=== PATIENT | male | born 1995 | race Caucasian/White ===

== ENCOUNTER 2024-03-17 21:19 | Emergency (ER) | payer SELFPAY ==
[2024-03-17 21:21] VITALS: BP 135/94
[2024-03-17 21:45] LABS: % Basophils 0.6 % (0-2); % Eosinophils 1.6 % (0-6); % Immature Granulocytes 0.3 % (0-0.5); % Lymphocytes 17.4 % (20.5-51.1); % Monocytes 7.1 % (1.7-9.3); Absolute Basophils 0.1 10^3/uL (0-0.2); Absolute Eosinophils 0.2 10^3/uL (0-0.7); Absolute Monocytes 0.8 10^3/uL (0.1-0.6); Absolute Neutrophils 8.2 10^3/uL (1.4-6.5); Hematocrit 43.4 % (39.0-52.0); Hemoglobin 15.1 g/dL (13.0-18.0); Mean Corp Hgb Conc. 34.8 g/dL (33.0-37.0); Mean Corpuscular Hgb 30.2 pg (27.0-31.0); Mean Corpuscular Volume 86.8 fL (80.0-94.0); Mean Platelet Volume 9.3 fL (7.4-10.4); Nucleated Red Blood Cells % 0 % (-); Platelet Count 303 10^3/uL (130-400); Red Cell Dist. Width 12.1 % (11.5-14.5); White Blood Cell Count 11.2 10^3/uL (4.8-10.8)
[2024-03-17 22:10] LABS: Troponin I < 0.012 ng/ml
[2024-03-17 22:26] LABS: ALT (SGPT) 32 U/L (0-50); AST (SGOT) 34 U/L (17-59); Albumin 4.8 g/dl (3.5-5.0); Alkaline Phosphatase 109 U/L (38-126); Blood Urea Nitrogen 28 mg/dl (9-20); Calcium 10.8 mg/dl (8.4-10.2); Carbon Dioxide 26 mmol/L (22-30); Chloride 98 mmol/L (98-107); Glucose 154 mg/dl (70-99); Potassium 4.3 mmol/L (3.5-5.1); Sodium 135 mmol/L (135-145); Total Bilirubin 0.9 mg/dl (0.2-1.3); Total Protein 7.8 g/dl (6.3-8.2); eGFR > 60.00
[2024-03-17 23:18] VITALS: BP 130/82
[2024-03-18] VITALS: BP 125/82
--- NOTE | 2024-03-18 00:11 | ED.GENMED ---
History of Present Illness
General
Chief Complaint: Fall
Time Seen by Provider: 03/17/24 23:23
History of Present Illness
History of Present Illness:
Patient is a 28-year-old male with history of concussions presenting to the emergency department after a fall. 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 He states that he was turning around he thought
he was going upstairs but went down the steps instead. He was wearing a helmet and all his gear that is padded. He did not hit his head or lose consciousness. After he got up other firefighters were saying that he was 'dazed' however patient
denies any confusion or disorientation. He is not have any amnesia to the event. He states that he only had a doughnut today which could explain some of the symptoms. They checked his blood sugar and it was normal. He denies any numbness
tingling or weakness. No traumatic injuries. He does state that he feels a little sore in his lower back. No nausea vomiting. No headache.
Past History
Past History
ED Past Medical History: Psychiatric (ADHD, ASPERGERS, CONCUSSIONS)
ED Past Surgical History: None
Social History
Tobacco: Non-smoker
Alcohol: None
Drug: None
Personal: Single
Living: with family
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
Phy Exam
Physical Exam
Physical Exam:
GENERAL: no acute distress
HEENT: atraumatic, extraocular muscles intact, no signs of entrapment, dentition intact, no other obvious trauma
NECK: no midline tenderness, normal range of motion
BACK: no midline tenderness, no other obvious trauma, mild left lower lumbar paraspinal tenderness
CHEST: no tenderness, no flail segment, no subcutaneous emphysema, no other obvious trauma
LUNGS: clear to auscultation bilaterally
CARDIOVASCULAR: regular rate and rhythm
ABDOMEN: soft, non-tender, no masses, no other obvious trauma
PELVIS: stable, no obvious injury
EXTREMITIES: moving all extremities, distal pulses intact, no other obvious trauma
NEUROLOGIC: awake, alert x 3, no focal deficits
Course
Orders/Labs/Results
Orders:
Orders
03/17/24 21:24
Electrocardiogram (*1) Urgent
Reason for Study: Chest Pain
EKG- Treatment ONCE
03/17/24 21:34
Complete Blood Count/With Diff Urgent
Comprehensive Metabolic Panel Urgent
Troponin I Urgent
03/18/24 00:11
Lumbar Spine, 2 or 3 View [CR Lumbar Spine 2 Or 3 Views] Urgent
Comment:
Reason For Exam: tenderness
Abnormal Lab Results
03/17/24
21:34
WBC 11.2 H 10^3/uL
(4.8-10.8)
Absolute Neuts (auto) 8.2 H 10^3/uL
(1.4-6.5)
Absolute Monos (auto) 0.8 H 10^3/uL
(0.1-0.6)
Lymphocytes % 17.4 L %
(20.5-51.1)
BUN 28 H mg/dl
(9-20)
Glucose 154 H mg/dl
(70-99)
Calcium 10.8 H mg/dl
(8.4-10.2)
03/17/24 21:34
03/17/24 21:34
Vital Signs
Initial and Last Documented VS:
Initial Vital Signs
Temp Pulse Resp BP Pulse Ox
97.7 F 98 20 135/94 98
03/17/24 21:21 03/17/24 21:21 03/17/24 21:21 03/17/24 21:21 03/17/24 21:21
Last Documented Vital Signs
Temp Pulse Resp BP Pulse Ox
97.7 F 18 13 125/82 99
03/17/24 21:21 03/18/24 00:41 03/18/24 00:30 03/18/24 00:00 03/18/24 00:30
MDM/Problems Addressed
Differential Diagnosis Includes:
Patient is a 28-year-old man with history of concussion presenting to the emergency department after a fall. Vitals unremarkable exam does show tenderness over the left lower lumbar paraspinal region. Likely musculoskeletal pain after the injury.
could be transverse process fracture though less likely. It is reassuring that he has no neurodeficits. Nexus CT head rule negative. After shared decision making we will hold off on the CT scan. Will obtain x-ray of the spine for further
evaluation. I did offer pain control however patient denied at this time. We did discuss at length about concussion given that this is his third concussion.
*Critical Care Note
Total Time (30-74mins, 75-104mins- exclusive of procedures): Not Applicable
Update Note
Update Note:
On reevaluation patient resting comfortably. He has no new, plans. X-ray per my interpretation with no obvious compression fracture or spinous process fracture. I did update patient that the official x-ray will be read tomorrow. Will give them a
call if there is an acute finding. Patient and patient's father at bedside understand. Given that patient has no neurodeficits anticipate conservative management with Tylenol Motrin even if there was a fracture. Will discharge at this time. All
questions answered. Strict return precautions given to include no numbness tingling, new weakness intractable nausea vomiting or headache.
ED Attending Note
-
Portions of this chart may have been created with voice recognition software.� Occasional wrong word or��sound alike� substitutions may have occurred due to the inherent limitations of voice recognition software.
Discharge Plan
Departure
Patient Disposition: Home (Routine Discharge)
Date of Disposition: 03/18/24
Time of Disposition: 01:11
Patient with high blood pressure during this ER visit?: No
Discharge Problem:
Fall, Concussion
Instructions: Concussion, Adult (DC)
Prescriptions:
No Action
No Current Medications
0
Referrals:
Dontrell Marquez CRNP [Family Provider] -
Interventions
Interventions:
*Risk Screen - Suicide Last Done: 03/17/24 21:21
*Neglect/Abuse Screening Last Done: 03/17/24 21:21
ED-Musculoskeletal Assessment Last Done: 03/18/24 00:19
ED- Neurological Assessment Last Done: 03/18/24 00:19
ED-Skin Assessment Last Done: 03/18/24 00:19
Discharge Date and Time
Print Language: JORDANIAN
[2024-03-18 01:19] VITALS: BP 132/82
== END 2024-03-18 01:20 | disposition home or self-care (01) ==
LOC: EMR 21:19
PROVIDERS: Emergency Medicine; EMERGENCY PHYSICIAN Student in an Organized Health Care Education/Training Program; FAMILY PHYSICIAN Nurse Practitioner Family
DX: S06.0XAA Concussion with loss of consciousness status unknown, initial encounter (principal); W19.XXXA Unspecified fall, initial encounter; F84.5 Asperger's syndrome
CPT/HCPCS: 99283; 72100; 80053; 84484; 85025; 93005

== ENCOUNTER → 2024-04-19 09:07 | Outpatient (REF) | payer OTHER, SELFPAY | LOC: HWRAD 09:07 | PROVIDERS: ATTENDING PHYSICIAN Nurse Practitioner Family | DX: M54.6 Pain in thoracic spine (principal) | CPT/HCPCS: 72072 ==

== ENCOUNTER → 2024-04-21 08:17 | Outpatient (REF) | payer OTHER, SELFPAY | LOC: RAD 08:17 | PROVIDERS: ATTENDING PHYSICIAN Nurse Practitioner Family | DX: M54.6 Pain in thoracic spine (principal); R22.2 Localized swelling, mass and lump, trunk | CPT/HCPCS: 76604 ==

== ENCOUNTER 2024-06-28 20:08 | Emergency (ER) | payer SELFPAY ==
[2024-06-28 20:16] VITALS: BP 123/84
[2024-06-28 20:34] LABS: % Basophils 0.7 % (0-2); % Eosinophils 2.6 % (0-6); % Immature Granulocytes 0.4 % (0-0.5); % Monocytes 9.6 % (1.7-9.3); % Neutrophils 54.7 % (42.2-75.2); Absolute Basophils 0.1 10^3/uL (0-0.2); Absolute Eosinophils 0.2 10^3/uL (0-0.7); Absolute Lymphocytes 2.2 10^3/uL (1.2-3.4); Absolute Monocytes 0.7 10^3/uL (0.1-0.6); Absolute Neutrophils 3.8 10^3/uL (1.4-6.5); Hematocrit 40.1 % (39.0-52.0); Hemoglobin 14.1 g/dL (13.0-18.0); Mean Corp Hgb Conc. 35.2 g/dL (33.0-37.0); Mean Corpuscular Hgb 30.3 pg (27.0-31.0); Mean Corpuscular Volume 86.1 fL (80.0-94.0); Mean Platelet Volume 9.3 fL (7.4-10.4); Nucleated Red Blood Cells % 0 % (-); Platelet Count 268 10^3/uL (130-400); Red Blood Cell Count 4.66 10^6/uL (4.70-6.10); Red Cell Dist. Width 12.3 % (11.5-14.5); White Blood Cell Count 6.9 10^3/uL (4.8-10.8)
[2024-06-28 20:53] LABS: ALT (SGPT) 31 U/L (0-50); AST (SGOT) 32 U/L (17-59); Albumin 4.7 g/dl (3.5-5.0); Alkaline Phosphatase 71 U/L (38-126); Blood Urea Nitrogen 18 mg/dl (9-20); Calcium 9.6 mg/dl (8.4-10.2); Carbon Dioxide 25 mmol/L (22-30); Chloride 108 mmol/L (98-107); Glucose 101 mg/dl (70-99); Sodium 140 mmol/L (135-145); Total Bilirubin 0.7 mg/dl (0.2-1.3); Total Protein 7.2 g/dl (6.3-8.2); eGFR > 60.00
[2024-06-28 20:54] LABS: Creatine Phosphokinase 96 U/L (55-170)
--- NOTE | 2024-06-28 20:57 | ED.GENMED ---
History of Present Illness
General
Chief Complaint: Dehydration Symptoms
Source: patient
Exam Limitations: none
Time Seen by Provider: 06/28/24 20:56
Nursing documentation reviewed up to this point in time: agreed with
History of Present Illness
History of Present Illness:
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 Patient was found to be pale and ill-appearing at the time of initial evaluation by paramedics. Patient received IV fluids on the way to the hospital, with significant improvement. At the time of my evaluation ED, after having
received 1 L IV fluids, patient feels as though he is back to his baseline health. Patient no longer has any of the aforementioned symptoms. Patient states that he has had similar symptoms in the past during physical activities. In addition,
according to patient and his girlfriend, patient is currently under heavy stress due to new work. Patient has not been sleeping well nor eating well recently. There is no family history of early heart disease. Patient denies drinking alcohol.
Denies recent illness.
Past History
Past History
ED Past Medical History: Psychiatric (ADHD, ASPERGERS, CONCUSSIONS)
ED Past Surgical History: None
Social History
Tobacco: Non-smoker
Alcohol: None
Drug: None
Personal: Single
Living: with family
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
Review of Systems
Review of Systems
Allergies reviewed?: Yes
All Other Systems: ROS reviewed and negative except as documented in HPI and ROS
Constitutional: Reports no symptoms
Respiratory: Reports no symptoms
Cardiac: Reports chest pain
ABD/GI: Reports no symptoms; Denies abdominal pain, nausea or vomiting
Musculoskeletal: Reports no symptoms
Skin: Reports no symptoms
Neurological: Reports weakness and numbness; Denies dizzy or headache
Phy Exam
Physical Exam
Physical Exam:
Physical Exam
General: no apparent distress, not acutely ill. afebrile
Head: nc/at. eomi
Neck: supple. no meningeal signs.
Heart: s1/s2 regular rate and rhythm. no murmur
Lungs: no acute respiratory distress. clear bilaterally
Abdomen: normal bowel sounds. not tender.
Neuro: alert and oriented x 3. no focal neurological deficits
Skin: no rash
Psychiatric: well kept. interactive and cooperative
Extremities: no edema. no calf tenderness.
Course
Orders/Labs/Results
Orders:
Orders
06/28/24 20:19
Electrocardiogram (*1) Urgent
Reason for Study: Shortness of Breath
EKG- Treatment ONCE
06/28/24 20:27
Complete Blood Count/With Diff Urgent
Comprehensive Metabolic Panel Urgent
Creatine [Creatine Phosphokinase] Urgent
Abnormal Lab Results
06/28/24
20:27
RBC 4.66 L 10^6/uL
(4.70-6.10)
Absolute Monos (auto) 0.7 H 10^3/uL
(0.1-0.6)
Monocytes % 9.6 H %
(1.7-9.3)
Chloride 108 H mmol/L
(98-107)
Glucose 101 H mg/dl
(70-99)
06/28/24 20:27
06/28/24 20:27
Vital Signs
Initial and Last Documented VS:
Initial Vital Signs
Temp Pulse Resp BP Pulse Ox
97.9 F 93 16 123/84 97
06/28/24 20:16 06/28/24 20:16 06/28/24 20:16 06/28/24 20:16 06/28/24 20:16
Last Documented Vital Signs
Temp Pulse Resp BP Pulse Ox
97.9 F 91 18 128/81 97
06/28/24 20:16 06/28/24 21:25 06/28/24 21:25 06/28/24 21:25 06/28/24 21:25
MDM/Problems Addressed
MDM/Problems Addressed:
History and exam consistent with likely symptoms secondary to significant physical exertion accompanied by dehydration, in the heat of exertional effort. After IV fluids, patient no longer has any symptoms. Patient without any significant medical
history nor any family history of significant early heart disease. As such, patient feels comfortable going home at this time, with return precautions provided. Advised PCP follow-up with any further concerns. Patient otherwise is afebrile,
hemodynamically stable, and is able to ambulate independently with steady gait, at time of discharge, to the care of his girlfriend.
*EKG
Interpreted by ED Provider?: Yes
EKG Intrepretation Date: 06/28/24
Heart Rate: 86
Rate: normal
Rhythm: sinus
[place]: normal axis
Interval: normal interval
*Critical Care Note
Total Time (30-74mins, 75-104mins- exclusive of procedures): Not Applicable
ED Attending Note
-
Portions of this chart may have been created with voice recognition software.� Occasional wrong word or��sound alike� substitutions may have occurred due to the inherent limitations of voice recognition software.
Discharge Plan
Departure
Patient Disposition: Home (Routine Discharge)
Date of Disposition: 06/28/24
Time of Disposition: 21:45
Patient with high blood pressure during this ER visit?: Yes
Condition: Good
Discharge Problem:
Dehydration, Physical exhaustion
Instructions: Dehydration, Adult (DC)
Prescriptions:
No Action
No Current Medications
0
Activity Restrictions/Additional Instructions:
As discussed, please follow-up with your primary care physician with any further concerns.
Interventions
Interventions:
*Risk Screen - Suicide Last Done: 06/28/24 20:52
*General Assessment Last Done: 06/28/24 20:52
*Neglect/Abuse Screening Last Done: 06/28/24 20:52
*ED- Fall Risk Assessment Last Done: 06/28/24 20:52
*ED COVID-19 Vaccine History Last Done: 06/28/24 20:52
*Nursing Disposition Last Done: 06/28/24 22:05
ED- Cardiac Assessment Last Done: 06/28/24 20:52
ED- Neurological Assessment Last Done: 06/28/24 20:52
ED- Pulmonary Assessment Last Done: 06/28/24 20:52
Discharge Date and Time
Discharge Date/Time: 06/28/24 22:06
Print Language: SAO TOMEAN
[2024-06-28 21:25] VITALS: BP 121/81; BP 127/84; BP 128/81; PULSE 88; PULSE 91; PULSE 96
== END 2024-06-28 22:06 | disposition home or self-care (01) ==
LOC: EMR 20:08
PROVIDERS: Emergency Medicine; EMERGENCY PHYSICIAN Emergency Medicine; FAMILY PHYSICIAN Nurse Practitioner Family
DX: E86.0 Dehydration (principal); F84.5 Asperger's syndrome
CPT/HCPCS: 99284; 80053; 82550; 85025; 93005

== ENCOUNTER 2024-07-08 06:42 | Day surgery (SDC) | payer OTHER, BC, SELFPAY ==
--- NOTE | 2024-07-08 07:54 | W.SUR.PREOP ---
Pre-Operative Surgical Note
-
I have examined this patient prior to the performance of the scheduled procedure.
The patient's condition is unchanged from the time of the current History and
Physical and the patient is able to undergo the scheduled procedure.
[2024-07-08 09:22] VITALS: BMI 23.2
[2024-07-08 09:23] VITALS: BP 124/79; BMI 23.2
[2024-07-08] MEDS: TYLENOL 1000 MG PO (09:30)
[2024-07-08] MEDS: NORMOSOL-R/PLASMALYTE-A 1000 IV (09:30)
[2024-07-08 10:33] VITALS: BP 124/79; BP 98/53
[2024-07-08 10:45] VITALS: BP 97/58
--- NOTE | 2024-07-08 10:46 | W.IMMPOSTOP ---
Surgical Immed Post Op Note
-
Primary Surgeon: Jean Paul Dobbs MD
Assisting Surgeon: None
Pre-op Diagnosis: Lipoma of the back
Post-op Diagnosis: Same
Procedure Performed: Excision of lipoma of the back
Anesthesia Type: General
Specimen / Cultures: Unencapsulated lipoma of the back
Estimated Blood Loss: 1 cc
Complications: None
Operative Findings: 2 cm unencapsulated lipoma of the mid upper back overlying the spine. No residual lipoma palpated. Wound closed in layers.
--- NOTE | 2024-07-08 10:48 | OR.RPT ---
Operative Report
Operative Report
Patient Name: Brady Saenz
: 1995
Date of Operation: 07/08/2024
Preoperative Diagnosis: Back lipoma
Postoperative Diagnosis: Same
Procedure(s):
Excision of lipoma of the back
Surgeon(s):
Dr. Dobbs
Counseling Case Manager(s):
BENJA Herrera
Anesthesia: MAC
Estimated Blood Loss: 1 cc
Urine Output: None
Drains/Lines/Implants: None
Specimens:
1. Lipoma of the back
Indication for surgery:
This is a 28-year-old male with a symptomatic 2 cm mass in his mid upper back. Ultrasound and exam consistent with a 2 cm lipoma. After evaluation in the office they were diagnosed with a lipoma. After discussion of risk benefits and alternatives
they elected and were consented for surgery.
Operative Findings: 2 cm unencapsulated lipoma of the mid upper back overlying the spine. No residual lipoma palpated. Wound closed in layers.
Details of the operation:
The patient was brought to the operating room a placed in the prone position. After appropriate sedation by anesthesia, the area of the back was prepped and draped in the usual fashion. A linear incision over natural skin line was made over the
mass and carried down through the subcutaneous tissue. The Lipoma was identified and found to be unencapsulated. The lipoma was freed circumferentially taking care not to come across the many interdigitating extensions that it had. The specimen
which measured roughly 2 x 2 cm was passed off the field. The cavity was irrigated and hemostasis was achieved. The space was closed with interrupted 3-0 Vicryl sutures. The dermis was then approximated using interrupted 3-0 Vicryl sutures
followed by a running 4-0 monocryl, followed by dermabond. All counts were correct at the end of procedure. The patient was then transferred to the PACU for recovery.
I was the attending physician and performed the procedure with assistance from the BENJA above. I was present for all portions of the case
Jean Paul Dobbs MD
[2024-07-08 11:20] VITALS: BP 115/71
[2024-07-08 11:35] VITALS: BP 102/67
== END 2024-07-08 11:50 | disposition home or self-care (01) ==
LOC: SDS 06:42
PROVIDERS: ATTENDING PHYSICIAN Surgery
DX: D17.1 Benign lipomatous neoplasm of skin and subcutaneous tissue of trunk (principal)
CPT/HCPCS: 21931; 88304